=== PATIENT | female | born 1995 | race Two or more races ===

== ENCOUNTER 2019-12-03 02:15 | Emergency (ER) | payer SELFPAY ==
[~2019-12-03] VITALS: Ht 170.2 cm; Wt 260.0 kg
[~2019-12-03 02:15] MED LIST: AMOX1TAB61 PO; DOCU-109 PO; HYDR-3164 PO; IBUP-1060 PO; OXYC1TAB15 PO
[2019-12-03 02:24] VITALS: BP 150/63
--- NOTE | 2019-12-03 02:53 | PHYS DOC ---
Past Medical History Past Medical History: No Pertinent History Past Surgical History: Smoking Status: Never Smoker Alcohol Use: None Drug Use: None Adult General Chief Complaint Chief Complaint: DENTAL PROBLEM [facility] 23-year-old female presents to the emergency Department complaints of dental pain. Patient has impacted wisdom teeth of which she is scheduled for removal on the however had some insurance issues and presents to the ER with complaints of pain. Patient is back therapy, no evidence of concern for abscess at this time. She primary complains of pain. Patient denies fever, does complain of some headache. He makes her symptoms worse, nothing makes her symptoms b olman. All other ROS negative unless documented in HPI Review of Systems Review of Systems See Above Allergies Allergies Allergies Coded Allergies Type Severity Reaction Last Updated Verified No Known Drug Allergies 08/31/16 No Physical Exam Physical Exam See Above Constitutional: Well developed, well nourished, acute distress secondary to pain, non-toxic appearance. [] HENT: Normocephalic, atraumatic, bilateral external ears normal, oropharynx moist, no oral exudates, nose normal. Tooth #16 and 17 with evidence of impaction. No evidence of abscess appreciated on exam [] Eyes: PERRLA, EOMI, conjunctiva normal, no discharge. [] Neck: Normal range of motion, no tenderness, supple, no stridor. [] Cardiovascular:Heart rate regular rhythm, no murmur [] Lungs & Thorax: Bilateral breath sounds clear to auscultation [] Skin: Warm, dry, no erythema, no rash. [] Neurologic: Alert and oriented X 3, no focal deficits noted. [] Psychologic: Affect normal, judgement normal, mood normal. [] EKG EKG [] Radiology/Procedures Radiology/Procedures [] Course & Med Decision Making Course & Med Decision Making Pertinent Labs and Imaging studies reviewed. (See chart for details) []23-year-old female presents to the emergency Department complaints of dental pain. Patient has impacted wisdom teeth of which she is scheduled for removal on the however had some insurance issues and presents to the ER with complaints of pain. Patient is back therapy, no evidence of concern for abscess at this time. She primary complains of pain. Patient denies fever, does complain of some headache. He makes her symptoms worse, nothing makes her symptoms better. Superior alveolar nerve block with 2 mL 2% lidocaine, inferior alveolar nerve block with 2% lidocaine 2 mL Patient with improved pain Recommend dc home Recommend follow up with dentist as scheduled Return precautions discussed Enrique Disclaimer Frenchon Disclaimer This electronic medical record was generated, in whole or in part, using a voice recognition dictation system. Departure Departure Impression: Primary Impression: Pain, dental Disposition: HOME, SELF-CARE Condition: IMPROVED Referrals: NO PCP (PCP) Patient Instructions: Dental Pain, [id number] Additional Instructions: Recommend follow up with dentist as scheduled Return precautions discussed Tylenol/Motrin for fever CODIE RIVERA MD Dec 03, 2019 02:52
[2019-12-03] MEDS ORDERED: traMADol 50 MG TABLET PO ONE (03:30)
== END 2019-12-03 03:15 | disposition home or self-care (01) ==
LOC: ER 02:15
DX: K08.89 Other specified disorders of teeth and supporting structures (principal); R51 Headache; Z98.890 Other specified postprocedural states
CPT/HCPCS: 64400; 99284

== ENCOUNTER → 2020-10-16 | Outpatient (CLI) | payer OTHER ==
[~2020-10-16] MED LIST changes: +BETA15CR5 TP; +METH4TAB2 PO
== END ==
LOC: LAB 14:08
PROVIDERS: ATTEND Obstetrics & Gynecology
DX: Z01.812 Encounter for preprocedural laboratory examination (principal); Z20.828 Contact with and (suspected) exposure to other viral communicable diseases
CPT/HCPCS: U0003

== ENCOUNTER 2020-10-22 07:16 | Inpatient (IN) | payer MEDICAID ==
[2020-10-22] VITALS (9 sets, daily range): BP systolic 81–117; BP diastolic 46–72
[~2020-10-22] VITALS: Ht 170.2 cm; Wt 118.0 kg
[~2020-10-22 07:16] MED LIST changes: -BETA15CR5 TP; -METH4TAB2 PO
[2020-10-22] MEDS ORDERED: IV RINGERS,LACTATED 1000ML 1,000 ML IV SCH (07:30)
[2020-10-22] MEDS ORDERED: OXYTOCIN 10 UNIT/ML VIAL. ONE ×2 (07:54→08:41)
[2020-10-22] MEDS ORDERED: PHENYLEPHRINE 10 MG/ML VIAL. ONE (07:55)
[2020-10-22] MEDS ORDERED: fentaNYL PF VIAL 100 MCG/2 ML VIAL ONE (07:56)
[2020-10-22] MEDS ORDERED: MORPHINE PF 10 MG/10 ML AMPUL. ONE (07:56)
[2020-10-22] MEDS ORDERED: ceFAZolin 2GM PREMIX 2 GM/50 ML BAG IV ONE (08:00)
[2020-10-22 08:03] LABS: BASO # 0.1 x10^3/uL (0.0-0.2); BASO % 1 % (0-3); EOS # 0.1 x10^3/uL (0.0-0.7); EOS % 1 % (0-3); HEMOGLOBIN 11.7 g/dL (12.0-15.5); LYMPH # 2.6 x10^3/uL (1.0-4.8); LYMPH % 31 % (24-48); MEAN CORPUSCULAR HEMOGLOBIN 26 pg (25-35); MEAN CORPUSCULAR HGB CONC 33 g/dL (31-37); MEAN CORPUSCULAR VOLUME 80 fL (79-100); MONO # 0.6 x10^3/uL (0.0-1.1); MONO % 7 % (0-9); NEUT % 60 % (31-73); PLATELET COUNT 180 x10^3/uL (140-400); RED BLOOD COUNT 4.51 x10^6/uL (3.50-5.40); RED CELL DISTRIBUTION WIDTH 15.6 % (11.5-14.5); WHITE BLOOD COUNT 8.3 x10^3/uL (4.0-11.0)
--- NOTE | 2020-10-22 08:03 | PDOC1 ---
OB - History Hx of Present Care: Good Care Ultrasounds: Normal mid trimester US Obstetrical Complications: None Medical Complications: None Past Family/Social History * Past Medical, Surgical, Family and Obstetric Histories reviewed from chart. Rubella: Immune RPR/VDRL: Negative GBS Status: Negative HBsAG: Negative OB - Chief Complaint & HPI Date of Admission: Date of Admission: Oct 22, 2020 at 07:16 Chief Complaint/History : 2 Para: 1 EGA: 39 Reason for admission: section Indication for : desires repeat Admission Nurse Assessment Rev: Yes OB - Admission Exam Physical Exam HEENT: Normal Heart: Regular Rate Lungs: Clear Abdomen: Gravid, Non tender, Soft Extremities: Edema Reflexes: Normal Cervical Dilatation: None Effacement: 50% Station: -3 Membranes: Intact Heart Rate: Normal Accelerations: Accelerations Present Decelerations: No decelerations Contractions on Admission: >10 Minutes Apart Intensity: Mild Text A: 39 wks IUP Previous c/s P: Admit for repeat c/s. BING CANTOR Jr, MD Oct 22, 2020 08:03
[2020-10-22] MEDS ORDERED: CITRIC ACID/SODIUM CITRATE 30 ML SOLUTION. PO ONE (08:15)
[2020-10-22 08:24] LABS: BILIRUBIN,URINE SMALL (NEG); CLARITY,URINE CLEAR; COLOR,URINE YELLOW; NITRITE,URINE NEGATIVE (NEG); PROTEIN,URINE NEGATIVE (NEG-TRACE)
[2020-10-22 08:36] LABS: BACTERIA,URINE FEW /HPF (0-FEW); RBC,URINE 0 /HPF (0-2)
--- NOTE | 2020-10-22 09:18 | PDOC4 ---
OB Operative Note Date: Oct 22, 2020 PRE OP DIAGNOSIS: Previoujs C- section POST OP DIAGNOSIS: Previous C- section OPERATION PERFORMED: R [facility] Surgeon Dr. Conway Home Specialist Cookie Anesthesia: Regional (Spinal) Blood Loss 600 ml Specimen placenta and infant OB Findings: Position (Vertex), Sex (Female), (8/9), Weight (6 Lb 12 oz), Fluid (Clear), Nuchal Cord (x1), Vacuum Extraction (Yes) Complications none Additional Remarks pt. BING Huff Jr, MD Oct 22, 2020 09:18
[2020-10-22] MEDS ORDERED: ONDANSETRON PF 4 MG/2 ML VIAL. IV PRN (09:30)
[2020-10-22] MEDS ORDERED: MAG HYDROX/ALUMINUM HYD/SIMETH 30 ML ORAL.SUSP PO PRN (09:30)
[2020-10-22] MEDS ORDERED: SIMETHICONE 80 MG TAB.CHEW PO PRN (09:30)
[2020-10-22] MEDS ORDERED: ZOLPIDEM 5 MG TABLET. PO PRN (09:30)
[2020-10-22] MEDS ORDERED: 0.9 % SODIUM CHLORIDE 10 ML DISP.SYRIN. IV PRN (09:30)
[2020-10-22] MEDS ORDERED: KETOROLAC 30 MG/ML VIAL. IV PRN (09:30)
[2020-10-22] MEDS ORDERED: OXYTOCIN 30 UNIT/500 ML PREMIX 500 ML IV PRN (09:30)
[2020-10-22] MEDS ORDERED: diphenhydrAMINE ORAL ELIXIR 12.5 MG/5 ML ML PO PRN (09:30)
--- NOTE | 2020-10-22 09:35 | OP ---
DATE OF SURGERY: 10/22/2020 PREOPERATIVE DIAGNOSES: 1. A 39 weeks' intrauterine . 2. Previous section. POSTOPERATIVE DIAGNOSES: 1. A 39 weeks' intrauterine . 2. Previous section. PROCEDURE: Repeat low-transverse section. SURGEON: Bing Conway MD [employer]BE[employer] SIDING MECHANIC: Cookie. ANESTHESIA: Spinal. ESTIMATED BLOOD LOSS: 600 mL. COMPLICATIONS: None. FINDINGS: Viable female infant, Apgars 8 and 9, weight 6 pounds 12 ounces. Three-vessel cord placenta delivered manually. Nuchal cord x 1. Vacuum assistance was utilized with delivery of the head. COMPLICATIONS: None. SUMMARY: A 24-year-old 2, para 1 at 39 weeks, presented for repeat section. She was counseled on the risks, benefits and expectations and voiced a clear understanding to proceed. DESCRIPTION OF PROCEDURE: The patient was taken to the surgery suite and placed in dorsal supine position. She was prepped with ChloraPrep and draped in a sterile fashion. After adequate anesthesia, Pfannenstiel skin incision was made with scalpel down to and through the fascia. The fascia was extended laterally using curved Fernandez scissors. The superior edge of the fascia was grasped with 2 Seng clamps and dissected free of the abdominal rectus muscles using blunt dissection along with Bovie cautery. The same process took place inferiorly. Abdominal rectus muscles were dissected bluntly at the midline. Peritoneum was grasped with 2 hemostats and entered sharply with Metzenbaum scissors. This incision was extended superiorly as well as inferiorly. The Wolfgang ring retractor was placed. The bladder flap was created using Metzenbaum scissors. A low-transverse hysterotomy incision was made with the scalpel down to and through the amniotic sac. Hysterotomy incision was extended laterally and superiorly digitally. With the aid of vacuum assistance and fundal pressure, the head was delivered in a smooth atraumatic manner. Nuchal cord x 1 was visualized and reduced. The vacuum was removed. With additional fundal pressure, the anterior shoulder was delivered followed by posterior shoulder and the rest of the female infant was delivered. was suctioned with a bulb syringe orally and nasally, umbilical cord was clamped twice and cut. A viable female infant was handed to the awaiting nursing staff. Umbilical cord blood was obtained. Three-vessel cord placenta was delivered manually. The uterus was then exteriorized and cleared of clot and debris with a moist lap. Hysterotomy incision was reapproximated using 1 Vicryl suture in a running locked fashion and imbricated layer of 1 Vicryl suture in a running fashion was utilized for better hemostasis. The uterus palpated firm. Fallopian tubes and ovaries appeared normal bilaterally. Posterior cul-de-sac was cleared of clot and debris with moist lap. The uterus was then returned to the abdomen. Pericolic gutters were cleared of clot and debris with moist lap. Hysterotomy incision was reviewed and was hemostatic. The Wolfgang ring retractor was removed. Peritoneum was reapproximated with 1 Vicryl suture in a running fashion. The abdominal rectus muscles were reapproximated using 1 Vicryl suture in a running fashion. Fascia was reapproximated using Stratafix in a running fashion. Skin was reapproximated using 4-0 Vicryl suture in a subcuticular manner. The patient tolerated the procedure well and was taken to the recovery room in stable condition. Sponge and needle count correct x 3. BING CONWAY MD DR: ANUSHA/latanya JOB#: [id number] / [id number]
[2020-10-22] MEDS: diphenhydrAMINE 50 MG/ML VIAL IVP PRN ×2 (09:46→22:02)
[2020-10-22] MEDS: KETOROLAC 30 MG/ML VIAL. IV PRN ×2 (09:47→19:48)
[2020-10-22] MEDS: FERROUS SULFATE 325 MG TABLET. PO SCH (17:00)
[2020-10-22] MEDS: IV RINGERS,LACTATED 1000ML 1,000 ML IV SCH (19:10)
[2020-10-23 02:00] VITALS: BP 101/49
[2020-10-23] MEDS: diphenhydrAMINE 50 MG/ML VIAL IVP PRN (02:03)
[2020-10-23] MEDS: IV RINGERS,LACTATED 1000ML 1,000 ML IV SCH (02:08)
[2020-10-23] MEDS: KETOROLAC 30 MG/ML VIAL. IV PRN (05:36)
[2020-10-23 06:00] VITALS: BP 105/53
--- NOTE | 2020-10-23 07:45 | PDOC ---
OB Progress Note Date of Service 10/23/20 Time of Evaluation 0745 Notes Pt. feeling well. No complaints. Lab Laboratory Tests Test 10/22/20 07:38 10/22/20 07:40 10/22/20 07:51 Urine Collection Type Unknown Urine Color Yellow Urine Clarity Clear Urine pH 7.0 (<5.0-8.0) Urine Specific Adams 1.025 (1.000-1.030) Urine Protein Negative mg/dL (NEG-TRACE) Urine Glucose (UA) Negative mg/dL (NEG) Urine Ketones (Stick) >=80 mg/dL (NEG) Urine Blood Negative (NEG) Urine Nitrite Negative (NEG) Urine Bilirubin Small (NEG) Urine Urobilinogen Dipstick 1.0 mg/dL (0.2 mg/dL) Urine Leukocyte Esterase Moderate (NEG) Urine RBC 0 /HPF (0-2) Urine WBC 5-10 /HPF (0-4) Urine Squamous Epithelial Cells Few /LPF Urine Bacteria Few /HPF (0-FEW) Urine Mucus Slight /LPF SARS-CoV-2 Antigen (Rapid) Negative (NEGATIVE) White Blood Count 8.3 x10^3/uL (4.0-11.0) Red Blood Count 4.51 x10^6/uL (3.50-5.40) Hemoglobin 11.7 g/dL (12.0-15.5) Hematocrit 36.0 % (36.0-47.0) Mean Corpuscular Volume 80 fL (79-100) Mean Corpuscular Hemoglobin 26 pg (25-35) Mean Corpuscular Hemoglobin Concent 33 g/dL (31-37) Red Cell Distribution Width 15.6 % (11.5-14.5) Platelet Count 180 x10^3/uL (140-400) Neutrophils (%) (Auto) 60 % (31-73) Lymphocytes (%) (Auto) 31 % (24-48) Monocytes (%) (Auto) 7 % (0-9) Eosinophils (%) (Auto) 1 % (0-3) Basophils (%) (Auto) 1 % (0-3) Neutrophils # (Auto) 5.0 x10^3/uL (1.8-7.7) Lymphocytes # (Auto) 2.6 x10^3/uL (1.0-4.8) Monocytes # (Auto) 0.6 x10^3/uL (0.0-1.1) Eosinophils # (Auto) 0.1 x10^3/uL (0.0-0.7) Basophils # (Auto) 0.1 x10^3/uL (0.0-0.2) Treponema pallidum Antibody Nonreactive (Nonreactive) Laboratory Tests Test 10/22/20 07:51 White Blood Count 8.3 x10^3/uL (4.0-11.0) Red Blood Count 4.51 x10^6/uL (3.50-5.40) Hemoglobin 11.7 g/dL (12.0-15.5) Hematocrit 36.0 % (36.0-47.0) Mean Corpuscular Volume 80 fL (79-100) Mean Corpuscular Hemoglobin 26 pg (25-35) Mean Corpuscular Hemoglobin Concent 33 g/dL (31-37) Red Cell Distribution Width 15.6 % (11.5-14.5) Platelet Count 180 x10^3/uL (140-400) Neutrophils (%) (Auto) 60 % (31-73) Lymphocytes (%) (Auto) 31 % (24-48) Monocytes (%) (Auto) 7 % (0-9) Eosinophils (%) (Auto) 1 % (0-3) Basophils (%) (Auto) 1 % (0-3) Neutrophils # (Auto) 5.0 x10^3/uL (1.8-7.7) Lymphocytes # (Auto) 2.6 x10^3/uL (1.0-4.8) Monocytes # (Auto) 0.6 x10^3/uL (0.0-1.1) Eosinophils # (Auto) 0.1 x10^3/uL (0.0-0.7) Basophils # (Auto) 0.1 x10^3/uL (0.0-0.2) Treponema pallidum Antibody Nonreactive (Nonreactive) Medications Current Medications Ringer's Solution 1,000 ml @ 1,000 mls/hr Q1H IV Last administered on 10/22/20at 08:17; Start 10/22/20 at 07:30; Stop 10/22/20 at 08:29; Status DC Ringer's Solution 1,000 ml @ 125 mls/hr Q8H IV Last administered on 10/23/20at 02:08; Start 10/22/20 at 07:30 Cefazolin Sodium/ Dextrose 50 ml @ 100 mls/hr 1X ONCE IV ; Start 10/22/20 at 07:30; Stop 10/22/20 at 07:59; Status DC Oxytocin (Pitocin) 10 unit STK-MED ONCE .ROUTE ; Start 10/22/20 at 07:54; Stop 10/22/20 at 07:54; Status DC Ephedrine Sulfate (Akovaz) 50 mg STK-MED ONCE .ROUTE ; Start 10/22/20 at 07:55; Stop 10/22/20 at 07:56; Status DC Phenylephrine HCl (Kevyn-Synephrine Inj) 10 mg STK-MED ONCE .ROUTE ; Start 10/22/20 at 07:55; Stop 10/22/20 at 07:56; Status DC Fentanyl Citrate (Fentanyl 2ml Vial) 100 mcg STK-MED ONCE .ROUTE ; Start 10/22/20 at 07:56; Stop 10/22/20 at 07:56; Status DC Morphine Sulfate (Morphine Preservative Free) 10 mg STK-MED ONCE .ROUTE ; Start 10/22/20 at 07:56; Stop 10/22/20 at 07:56; Status DC Citric Acid/ Sodium Citrate (Bicitra) 30 ml 1X ONCE PO Last administered on 10/22/20at 08:17; Start 10/22/20 at 08:15; Stop 10/22/20 at 08:16; Status DC Oxytocin (Pitocin) 10 unit STK-MED ONCE .ROUTE ; Start 10/22/20 at 08:41; Stop 10/22/20 at 08:41; Status DC Sodium Chloride (Normal Saline Flush) 3 ml QSHIFT PRN IV AFTER MEDS AND BLOOD DRAWS; Start 10/22/20 at 09:30 Oxytocin 500 ml @ 125 mls/hr CONT PRN IV EXCESSIVE POST- BLEEDING; Start 10/22/20 at 09:30; Stop 10/22/20 at 17:29; Status DC Ibuprofen (Motrin) 800 mg PRN Q8HRS PRN PO INFLAMMATION; Start 10/22/20 at 09:30 Ondansetron HCl (Zofran) 4 mg PRN Q6HRS PRN IV NAUSEA/VOMITING Last administered on 10/22/20at 13:10; Start 10/22/20 at 09:30 Docusate Sodium (Colace) 100 mg PRN BID PRN PO CONSTIPATION; Start 10/22/20 at 09:30 Al Hydroxide/Mg Hydroxide (Mylanta Plus Xs) 30 ml PRN Q4HRS PRN PO HEARTBURN / GAS; Start 10/22/20 at 09:30 Simethicone (Gas-X) 80 mg PRN AFTMEALHC PRN PO GAS / BLOATING; Start 10/22/20 at 09:30 Diphenhydramine HCl (Benadryl Oral Elixir) 12.5 mg PRN Q6HRS PRN PO ITCHING; Start 10/22/20 at 09:30 Ferrous Sulfate (Feosol) 325 mg BIDWMEALS PO ; Start 10/22/20 at 17:00 Zolpidem Tartrate (Ambien) 5 mg PRN QHS PRN PO INSOMNIA, MAY REPEAT X1; Start 10/22/20 at 09:30 Oxycodone/ Acetaminophen (Percocet 5/325) 2 tab PRN Q4HRS PRN PO MODERATE PAIN, SEVERE PAIN; Start 10/22/20 at 09:30 Ketorolac Tromethamine (Toradol 30mg Vial) 30 mg PRN Q6HRS PRN IV INFLAMMATION/PAIN Last administered on 10/23/20at 05:36; Start 10/22/20 at 09:30; Stop 10/27/20 at 09:29 Multivitamins (Thera M Plus) 1 tab DAILY PO ; Start 10/23/20 at 09:00 Ketorolac Tromethamine (Toradol 30mg Vial) 30 mg PRN Q6HRS PRN IV PAIN; Start 10/22/20 at 09:30; Stop 10/27/20 at 09:29 Diphenhydramine HCl (Benadryl) 25 mg PRN Q6HRS PRN IVP ITCHING Last administered on 10/23/20at 02:03; Start 10/22/20 at 09:45 Active Scripts Active Augmentin 875-125 Tablet (Amoxicillin/Potassium Clav) 1 Each Tablet 1 Tab PO BID Potrero 5-325 Tablet (Acetaminophen/Hydrocodone Bitart) 1 Each Tablet 1-2 Each PO PRN Q6HRS PRN as needed for pain Percocet 5-325 Mg Tablet (Oxycodone/Acetaminophen) 1 Each Tablet 1-2 Tab PO Q4-6HRS Colace (Docusate Sodium) 100 Mg Capsule 1 Cap PO BID Ibuprofen 800 Mg Tablet 800 Mg PO PRN Q6HRS PRN Exam Abd: soft, mild tenderness, fundus firm Bandage removed. Incision site: clean, dry and intact Assessment POD#1 s/p repeat c/s Plan of Care: Continue current Tx, Mgmt BING CANTOR Jr, MD Oct 23, 2020 07:45
[2020-10-23] MEDS: FERROUS SULFATE 325 MG TABLET. PO SCH ×2 (08:00→17:23)
[2020-10-23] MEDS: oxyCODONE/APAP 5/325 1 TAB TABLET PO PRN ×5 (08:02→21:22)
[2020-10-23] MEDS: MULTIVITAMIN with MINERAL TABLET. PO SCH (08:02)
[2020-10-23] MEDS: DOCUSATE SODIUM 100 MG CAPSULE. PO PRN ×2 (08:02→21:22)
[2020-10-23 08:10] VITALS: BP 104/56
[2020-10-23 08:33] LABS: BASO % 0 % (0-3); EOS # 0.1 x10^3/uL (0.0-0.7); EOS % 1 % (0-3); HEMATOCRIT 30.6 % (36.0-47.0); HEMOGLOBIN 9.9 g/dL (12.0-15.5); LYMPH # 1.6 x10^3/uL (1.0-4.8); LYMPH % 22 % (24-48); MEAN CORPUSCULAR HEMOGLOBIN 26 pg (25-35); MEAN CORPUSCULAR HGB CONC 32 g/dL (31-37); MEAN CORPUSCULAR VOLUME 80 fL (79-100); MONO # 0.5 x10^3/uL (0.0-1.1); MONO % 7 % (0-9); NEUT # 4.9 x10^3/uL (1.8-7.7); NEUT % 69 % (31-73); PLATELET COUNT 153 x10^3/uL (140-400); RED BLOOD COUNT 3.81 x10^6/uL (3.50-5.40); RED CELL DISTRIBUTION WIDTH 15.7 % (11.5-14.5)
[2020-10-23] MEDS ORDERED: diphenhydrAMINE HCL 25 MG CAPSULE PO PRN ×2 (10:15)
[2020-10-23] MEDS: IBUPROFEN 400 MG TABLET. PO PRN ×2 (11:58→21:23)
[2020-10-23 12:15] VITALS: BP 116/61
[2020-10-23 17:20] VITALS: BP 108/70
[2020-10-23 20:00] VITALS: BP 103/61
[2020-10-23] MEDS: MAGNESIUM HYDROXIDE 2,400 MG/30 ML ORAL.SUSP. PO PRN (21:39)
[2020-10-24] MEDS: oxyCODONE/APAP 5/325 1 TAB TABLET PO PRN ×6 (01:19→19:24)
[2020-10-24] MEDS: IBUPROFEN 400 MG TABLET. PO PRN ×2 (05:18→14:48)
[2020-10-24 05:28] VITALS: BP 100/64
[2020-10-24] MEDS: FERROUS SULFATE 325 MG TABLET. PO SCH (08:00)
[2020-10-24] MEDS: MAGNESIUM HYDROXIDE 2,400 MG/30 ML ORAL.SUSP. PO PRN (08:54)
[2020-10-24] MEDS: DOCUSATE SODIUM 100 MG CAPSULE. PO PRN ×2 (08:54→19:21)
[2020-10-24] MEDS: MULTIVITAMIN with MINERAL TABLET. PO SCH (08:54)
[2020-10-24 09:20] VITALS: BP 115/62
--- NOTE | 2020-10-24 10:51 | PDOC ---
OB Progress Note Date of Service 10/24/20 Time of Evaluation 1050 Notes PT. feeling well. No complaints. Lab Laboratory Tests Test 10/23/20 08:05 White Blood Count 7.0 x10^3/uL (4.0-11.0) Red Blood Count 3.81 x10^6/uL (3.50-5.40) Hemoglobin 9.9 g/dL (12.0-15.5) Hematocrit 30.6 % (36.0-47.0) Mean Corpuscular Volume 80 fL (79-100) Mean Corpuscular Hemoglobin 26 pg (25-35) Mean Corpuscular Hemoglobin Concent 32 g/dL (31-37) Red Cell Distribution Width 15.7 % (11.5-14.5) Platelet Count 153 x10^3/uL (140-400) Neutrophils (%) (Auto) 69 % (31-73) Lymphocytes (%) (Auto) 22 % (24-48) Monocytes (%) (Auto) 7 % (0-9) Eosinophils (%) (Auto) 1 % (0-3) Basophils (%) (Auto) 0 % (0-3) Neutrophils # (Auto) 4.9 x10^3/uL (1.8-7.7) Lymphocytes # (Auto) 1.6 x10^3/uL (1.0-4.8) Monocytes # (Auto) 0.5 x10^3/uL (0.0-1.1) Eosinophils # (Auto) 0.1 x10^3/uL (0.0-0.7) Basophils # (Auto) 0.0 x10^3/uL (0.0-0.2) Medications Current Medications Ringer's Solution 1,000 ml @ 1,000 mls/hr Q1H IV Last administered on 10/22/20at 08:17; Start 10/22/20 at 07:30; Stop 10/22/20 at 08:29; Status DC Ringer's Solution 1,000 ml @ 125 mls/hr Q8H IV Last administered on 10/23/20at 02:08; Start 10/22/20 at 07:30; Stop 10/23/20 at 08:37; Status DC Cefazolin Sodium/ Dextrose 50 ml @ 100 mls/hr 1X ONCE IV ; Start 10/22/20 at 07:30; Stop 10/22/20 at 07:59; Status DC Oxytocin (Pitocin) 10 unit STK-MED ONCE .ROUTE ; Start 10/22/20 at 07:54; Stop 10/22/20 at 07:54; Status DC Ephedrine Sulfate (Akovaz) 50 mg STK-MED ONCE .ROUTE ; Start 10/22/20 at 07:55; Stop 10/22/20 at 07:56; Status DC Phenylephrine HCl (Kevyn-Synephrine Inj) 10 mg STK-MED ONCE .ROUTE ; Start 10/22/20 at 07:55; Stop 10/22/20 at 07:56; Status DC Fentanyl Citrate (Fentanyl 2ml Vial) 100 mcg STK-MED ONCE .ROUTE ; Start 10/22/20 at 07:56; Stop 10/22/20 at 07:56; Status DC Morphine Sulfate (Morphine Preservative Free) 10 mg STK-MED ONCE .ROUTE ; Start 10/22/20 at 07:56; Stop 10/22/20 at 07:56; Status DC Citric Acid/ Sodium Citrate (Bicitra) 30 ml 1X ONCE PO Last administered on 10/22/20at 08:17; Start 10/22/20 at 08:15; Stop 10/22/20 at 08:16; Status DC Oxytocin (Pitocin) 10 unit STK-MED ONCE .ROUTE ; Start 10/22/20 at 08:41; Stop 10/22/20 at 08:41; Status DC Sodium Chloride (Normal Saline Flush) 3 ml QSHIFT PRN IV AFTER MEDS AND BLOOD DRAWS; Start 10/22/20 at 09:30 Oxytocin 500 ml @ 125 mls/hr CONT PRN IV EXCESSIVE POST- BLEEDING; Start 10/22/20 at 09:30; Stop 10/22/20 at 17:29; Status DC Ibuprofen (Motrin) 800 mg PRN Q8HRS PRN PO INFLAMMATION Last administered on 10/24/20at 05:18; Start 10/22/20 at 09:30 Ondansetron HCl (Zofran) 4 mg PRN Q6HRS PRN IV NAUSEA/VOMITING Last administered on 10/22/20at 13:10; Start 10/22/20 at 09:30 Docusate Sodium (Colace) 100 mg PRN BID PRN PO CONSTIPATION Last administered on 10/24/20at 08:54; Start 10/22/20 at 09:30 Al Hydroxide/Mg Hydroxide (Mylanta Plus Xs) 30 ml PRN Q4HRS PRN PO HEARTBURN / GAS; Start 10/22/20 at 09:30 Simethicone (Gas-X) 80 mg PRN AFTMEALHC PRN PO GAS / BLOATING; Start 10/22/20 at 09:30 Diphenhydramine HCl (Benadryl Oral Elixir) 12.5 mg PRN Q6HRS PRN PO ITCHING; Start 10/22/20 at 09:30 Ferrous Sulfate (Feosol) 325 mg BIDWMEALS PO Last administered on 10/23/20at 17:23; Start 10/22/20 at 17:00 Zolpidem Tartrate (Ambien) 5 mg PRN QHS PRN PO INSOMNIA, MAY REPEAT X1; Start 10/22/20 at 09:30 Oxycodone/ Acetaminophen (Percocet 5/325) 2 tab PRN Q4HRS PRN PO MODERATE PAIN, SEVERE PAIN Last administered on 10/24/20at 08:54; Start 10/22/20 at 09:30 Ketorolac Tromethamine (Toradol 30mg Vial) 30 mg PRN Q6HRS PRN IV INFLAMMATION/PAIN Last administered on 10/23/20at 05:36; Start 10/22/20 at 09:30; Stop 10/23/20 at 08:37; Status DC Multivitamins (Thera M Plus) 1 tab DAILY PO Last administered on 10/24/20at 08:54; Start 10/23/20 at 09:00 Ketorolac Tromethamine (Toradol 30mg Vial) 30 mg PRN Q6HRS PRN IV PAIN; Start 10/22/20 at 09:30; Stop 10/23/20 at 08:37; Status DC Diphenhydramine HCl (Benadryl) 25 mg PRN Q6HRS PRN IVP ITCHING Last administered on 10/23/20at 02:03; Start 10/22/20 at 09:45 Diphenhydramine HCl (Benadryl) 25 mg PRN Q6HRS PRN PO MODERATE ITCHING; Start 10/23/20 at 10:15 Diphenhydramine HCl (Benadryl) 50 mg PRN Q6HRS PRN PO SEVERE ITCHING Last administered on 10/23/20at 10:13; Start 10/23/20 at 10:15 Magnesium Hydroxide (Milk Of Magnesia) 2,400 mg PRN DAILY PRN PO CONSTIPATION Last administered on 10/24/20at 08:54; Start 10/23/20 at 21:30 Cefazolin Sodium/ Dextrose (Ancef 2gm Premix) 2 gm STK-MED ONCE IV ; Start 10/22/20 at 08:00; Stop 10/24/20 at 08:33; Status DC Active Scripts Active Augmentin 875-125 Tablet (Amoxicillin/Potassium Clav) 1 Each Tablet 1 Tab PO BID Jackson 5-325 Tablet (Acetaminophen/Hydrocodone Bitart) 1 Each Tablet 1-2 Each PO PRN Q6HRS PRN as needed for pain Percocet 5-325 Mg Tablet (Oxycodone/Acetaminophen) 1 Each Tablet 1-2 Tab PO Q4-6HRS Colace (Docusate Sodium) 100 Mg Capsule 1 Cap PO BID Ibuprofen 800 Mg Tablet 800 Mg PO PRN Q6HRS PRN Exam Abd: soft, non tender, fundus firm Incision site: clean, dry and intact Assessment POD#2 s/p repeat c/s Plan of Care: Continue current Tx, BING Parks Jr, MD Oct 24, 2020 10:51
[2020-10-24 14:35] VITALS: BP 126/79
[2020-10-24 21:08] VITALS: BP 116/62
[2020-10-25] MEDS: IBUPROFEN 400 MG TABLET. PO PRN ×3 (00:27→13:47)
[2020-10-25] MEDS: oxyCODONE/APAP 5/325 1 TAB TABLET PO PRN ×4 (00:27→13:48)
[2020-10-25 02:48] VITALS: BP 106/59
[2020-10-25 06:06] VITALS: BP 105/66
[2020-10-25] MEDS: DOCUSATE SODIUM 100 MG CAPSULE. PO PRN (06:40)
[2020-10-25 08:15] VITALS: BP 118/64
[2020-10-25] MEDS: MULTIVITAMIN with MINERAL TABLET. PO SCH (08:19)
--- NOTE | 2020-10-25 13:01 | PDOC3 ---
OB DISCHARGE SUMMARY DATE OF ADMISSION: 10/22/20 DATE OF DISCHARGE: 10/25/20 REASON FOR ADMISSION: section INTRAPARTUM PROCEDURES: : Low Cerv Trans DISCHARGE DIAGNOSIS: Term Delivered DISCHARGE INFORMATION: Activity (ad loly), Diet (regular), Instructions (pelvic rest x 6 wks, no driving x 2 wks, no lifting > 20 lbs. x 4 wks) HOSPITAL COURSE Term gestation delivered repeat c/s without complications. BING CANTOR Jr, MD Oct 25, 2020 13:01
[2020-10-25] MEDS ORDERED: OXYC1TAB15 PO (13:04)
[2020-10-25] MEDS ORDERED: DOCU-109 PO (13:04)
[2020-10-25] MEDS ORDERED: IBUP-1060 PO (13:04)
--- NOTE | 2020-10-25 13:05 | DISCH ---
DISCHARGE INSTRUCTIONS Condition on Discharge Condition on Discharge: Stable Activity After Discharge Activity Instructions for Disc: Activity as tolerated Lifting Instructions after Dis: No heavy lifting, No pulling or pushing, Do not lift >10 pounds Driving Instructions after Dis: No driving for 2 weeks Weight Bearing Status after Di: As tolerated Diet after Discharge Diet after Discharge: Regular Diet Texture: Regular Contacting the DRCarlos after DC Call your doctor for: Concerns you may have Follow-Up Follow up with: Dr. Conway in 2 wks Treatment/Equipment after DC Adaptive Equipment Issued: None BING CONWAY Jr, MD Oct 25, 2020 13:05
[2020-10-25 13:45] VITALS: BP 124/71
--- NOTE | 2020-10-25 14:30 | NUR ---
Patient wheeled down to vehicle. Copy of d/c instructions given. Prescriptions given to patient per order.
== END 2020-10-25 14:30 | disposition home or self-care (01) | DRG 788 ==
LOC: 3 SO LND 07:16 → 3 NORTH 12:06
PROVIDERS: ADMIT Obstetrics & Gynecology; ATTEND Obstetrics & Gynecology
PROC: 10D00Z1 Extraction of Products of Conception, Low, Open Approach (ICD-10-PCS; principal; 2020-10-22)
DX: O34.211 Maternal care for low transverse scar from previous cesarean delivery (principal); O69.81X0 Labor and delivery complicated by cord around neck, without compression, not applicable or unspecified; Z37.0 Single live birth; Z3A.39 39 weeks gestation of pregnancy; Z20.822 Contact with and (suspected) exposure to COVID-19
CPT/HCPCS: 36415; 81001; 85025; 86592; 86850; 86900; 86901; 87086; 87426; J0690; J1200; J1885; J2274; J2370; J2405; J2590; J3010; J7120; U0003; G0378; Q0163

== ENCOUNTER 2021-03-12 09:43 | Emergency (ER) | payer MEDICAID ==
[~2021-03-12] VITALS: Ht 170.2 cm; Wt 109.0 kg
[2021-03-12 09:53] VITALS: BP 130/72
[2021-03-12] MEDS ORDERED: METH4TAB2 PO (10:14)
[2021-03-12] MEDS ORDERED: BETA15CR5 TP (10:14)
--- NOTE | 2021-03-12 10:14 | PHYS DOC ---
Past Medical History Past Medical History: No Pertinent History (NENA JOYCE APRN) Past Surgical History: (NENA JOYCE APRN) Smoking Status: Current Some Day Smoker Alcohol Use: Occasionally Drug Use: None (NENA JOYCE APRN) General Adult EDM: Chief Complaint: SKIN PROBLEM HPI: HPI: Patient is a 25 year old female who presents with states her 2 days ago was outside cutting down trees and weeds and then came inside and took a shower and then they laid in bed together and she awoke with a itchy dermatitis rash to the left shoulder, left whole side of the abdomen, right flexor of the elbow and on her left leg. She states she has been using aloe. She states that her also has a rash on his arm. She states that there was likely poison gudelia or poison oak. She denies any pain but states is very itchy. She has a history of smoking. (NENA JOYCE APRN) Review of Systems: Review of Systems: Constitutional: Denies fever or chills. [] Eyes: Denies change in visual acuity. [] HENT: Denies nasal congestion or sore throat. [] Respiratory: Denies cough or shortness of breath. [] Cardiovascular: Denies chest pain or edema. [] GI: Denies abdominal pain, nausea, vomiting, bloody stools or diarrhea. [] : Denies dysuria. [] Musculoskeletal: Denies back pain or joint pain. [] Integument: + Generalized rash. [] Neurologic: Denies headache, focal weakness or sensory changes. [] Endocrine: Denies polyuria or polydipsia. [] Lymphatic: Denies swollen glands. [] Psychiatric: Denies depression or anxiety. 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 Risk Scores: Score 0 - 3: 2.5% MACE over next 6 weeks - Discharge Home Score 4 - 6: 20.3% MACE over next 6 weeks - Admit for Clinical Observation Score 7 - 10: 72.7% MACE over next 6 weeks - Early Invasive Strategies (NENA JOYCE APRN) Allergies: Allergies: Allergies Coded Allergies Type Severity Reaction Last Updated Verified No Known Drug Allergies 08/31/16 No (NENA JOYCE APRN) Physical Exam: PE: Constitutional: Well developed, well nourished, no acute distress, non-toxic appearance. [] HENT: Normocephalic, atraumatic, bilateral external ears normal, oropharynx moist, no oral exudates, nose normal. [] Eyes: PERRLA, EOMI, conjunctiva normal, no discharge. [] Neck: Normal range of motion, no tenderness, supple, no stridor. [] Cardiovascular:Heart rate regular rhythm, no murmur [] Lungs & Thorax: Bilateral breath sounds clear to auscultation [] Abdomen: Bowel sounds normal, soft, no tenderness, no masses, no pulsatile masses. [] Skin: Warm, dry, no erythema, left abdomen, left shoulder, right flexure of elbow, left upper leg rash. [] Back: No tenderness, no CVA tenderness. [] Extremities: No tenderness, no cyanosis, no clubbing, ROM intact, no edema. [] Neurologic: Alert and oriented X 3, normal motor function, normal sensory function, no focal deficits noted. [] Psychologic: Affect normal, judgement normal, mood normal. [] (NENA JOYCE APRN) Current Patient Data: Vital Signs: Vital Signs Date Time Temp Pulse Resp B/P (MAP) Pulse Ox O2 Delivery O2 Flow Rate FiO2 03/12/21 09:53 97.8 77 20 130/72 (91) 99 Room Air 97.8 (NENA JOYCE APRN) EKG: EKG: [] (NENA JOYCE APRN) Radiology/Procedures: Radiology/Procedures: [] (NENA JOYCE APRN) Course & Med Decision Making: Course & Med Decision Making Pertinent Labs and Imaging studies reviewed. (See chart for details) See HPI. Alert and oriented x4. Ambulatory with steady gait. Speaks in full clear sentences. No signs of infection. Blisters have not popped and is not weeping. There are small clear blisters with this contact dermatitis. Skin pink warm and dry. Vital signs within normal limits. There is no rash to the face. She denies shortness of breath, throat tightness or itching, lip or tongue swelling. Lungs are clear to auscultate in all lobes. [] (NENA JOYCE APRN) Dragon Disclaimer: Enrique Disclaimer: This electronic medical record was generated, in whole or in part, using a voice recognition dictation system. (NENA JOYCE APRN) Departure Departure Impression: Primary Impression: Allergic dermatitis Disposition: HOME / SELF CARE / HOMELESS Condition: STABLE Referrals: NO PCP (PCP) Patient Instructions: Poison Gudelia Additional Instructions: Follow-up with primary care provider. Take medication as prescribed and with food. You were having shortness of breath or swelling to your face you need to return emergency room. Scripts Methylprednisolone (MEDROL) 4 Mg Tab.ds.pk 1 PKG PO UD, #1 PKG Prov: NENA JOCYE APRN 03/12/21 Betamethasone Dipropionate (BETAMETHASONE DIPROPIONATE) 15 Gm Cream..g. 1 MISAEL TP BID, #45 GM 1 Refill Prov: NENA OJYCE APRN 03/12/21 Attending Signature I have participated in the care of this patient and I have reviewed and agree with all pertinent clinical information above including history, exam, and recommendations. (DAVID POTTER DO) NENA JOYCE APRN March 12, 2021 10:14 DAVID POTTER DO March 12, 2021 12:07
== END 2021-03-12 10:31 | disposition home or self-care (01) ==
LOC: ER 09:43
DX: L23.9 Allergic contact dermatitis, unspecified cause (principal); F17.200 Nicotine dependence, unspecified, uncomplicated
CPT/HCPCS: 99283